=== PATIENT | female | born 1960 | race Caucasian/White ===

== ENCOUNTER 2024-07-30 18:45 | Emergency (ER) | payer BC, SELFPAY ==
[2024-07-30] VITALS (8 sets, daily range): BP systolic 105–144; BP diastolic 58–84; PULSE 89–101; RESP 15–26; TEMP 36.8–37; O2SAT 97–100; BMI 30.7
--- NOTE | 2024-07-30 19:00 | RAD_ITS ---
EXAM: XR RIGHT WRIST COMPLETE, 3 OR MORE VIEWS CLINICAL INDICATION: fall TECHNIQUE: Frontal, lateral and oblique views of the right wrist. COMPARISON: No relevant prior studies available. FINDINGS: BONES/JOINTS: Acute intra-articular fracture involving the distal radius. Dorsal angulation and partial displacement of the distal component. Diffuse osteopenia. Posttraumatic positive ulnar variance. Preservation of the joint space. No sclerotic or destructive changes observed. No other acute or healing fracture or malalignment. SOFT TISSUES: Moderate soft tissue swelling about the fracture site. No radiopaque foreign body. RAD/Wrist min 3 Views IMPRESSION: Acute intra-articular fracture involving the distal radius. Electronically Signed: Joe Paul MD at 19:28 EST ,
--- NOTE | 2024-07-30 20:34 | EX.ED.UPPERE ---
HPI History of Present Illness Chief Complaint: Upper Extremity Injury Detail of Chief Complaint: Right wrist injury Informant: patient Narrative Narrative: Patient presents the emergency department with complaint of injury to the right wrist that occurred approximately 545. Patient states that she slipped on some ice injuring her wrist. She is right-hand dominant. She denies any other injuries. She has no medical history. [facility] Medical History (Updated 07/30/24 @ 21:[address] Vaughn Damian, DO) Fall Allergy/AdvReac Type Severity Reaction Status Date / Time No Known Allergies Allergy Verified 07/30/24 18:46 Social History Smoking Status: Unknown if ever smoked ROS ROS ED Review of Systems ROS Unobtainable: other Constitutional Constitutional ED: Reports lethargy; Denies chills, fever(s), sweats or weight loss Eyes Eyes: Denies blurry vision, change in vision or diplopia ENT ENT ED: Denies rhinorrhea or sore throat Cardiovascular Cardiovascular: Denies chest pain, orthopnea or racing heartbeat Respiratory/Chest Respiratory/Chest: Denies cough, dyspnea, dyspnea on exertion, orthopnea or sputum Gastrointestinal Gastrointestinal: Denies abdominal pain, diarrhea, nausea or vomiting Genitourinary Genitourinary ED: Denies dysuria, hematuria or urinary frequency Musculoskeletal Musculoskeletal: Reports other Details: Right wrist injury/pain ; Denies arthralgias, back pain, myalgias or neck pain Integumentary Denies abscess, Abrasions or rash Neurologic Neurologic: Denies headache(s) or weakness Psychiatric Psychiatric: Denies anxiety, depression or suicidal thoughts Endocrine Endocrinology: Denies polydipsia, polyphagia or polyuria Hematologic/Lymphatic Hematologic/Lymphatic: Denies easy bleeding, easy bruising or lymphadenopathy Allergic/Immunologic Allergic/Immunologic ED: Denies mouth swelling, tongue swelling or urticaria EXAM Physical Exam Const Vital Signs: 07/30/24 18:46 Temperature 98.6 F Temperature Source Oral Pulse Rate 89 Respiratory Rate 18 Blood Pressure 144/84 H Blood Pressure Mean 104 Pulse Ox 99 Oxygen Delivery Method Room Air Positive well nourished and well developed General Appearance ED: well developed and NAD HEENT Reports TM's clear and moist mucous membranes normocephalic and atraumatic; Negative for trauma or tenderness Tympanic Membrane ED: Yes TM's clear Eyes PERRL and EOMs intact bilaterally General Eye ED: Negative for pale conjunctiva or scleral icterus Neck no lymphadenopathy, supple and no JVD General: Negative for tenderness Chest Wall inspection of chest normal and palpation of chest normal Chest: Negative for tenderness Resp normal respiratory effort and clear to auscultation bilaterally Effort and Inspection: Negative for respiratory distress or pain with movement Auscultation: Negative for rhonchi, wheezes or diminished lung sounds Cardio regular rate, regular rhythm, S1 normal heart sound, S2 normal heart sound and no murmurs Peripheral Pulses: pulses 2+ throughout GI normal to inspection, nondistended, normoactive bowel sounds, soft to palpation, non-tender, non-distended and no masses Back/Spine no CVA tenderness and no thoracic nor lumbar tenderness Extremity Extremity Narrative: Right wrist-patient has diffuse soft tissue swelling with obvious deformity. No broken skin noted. She is neurovascular intact distally. She has tenderness palpation over the distal radius. General Extremety ED: Negative for edema General Extremity: Negative for edema Neuro oriented x3, CN's II-XII intact bilaterally, no sensory deficits noted and gait normal Sensorium / Orientation: awake, alert, oriented to person, oriented to place and oriented to time Motor Exam: strength 5/5 throughout and strength abnormal Psych mental status grossly normal Skin no rashes or lesions noted and no wounds MDM MDM MDM Narrative Medical decision making narrative: Patient with distal radius fracture after a fall. Not anticoagulated no medical history. Recommended procedural sedation for reduction. Will use propofol. Will obtain postreduction films and discussed with orthopedics. Patient had procedural sedation with propofol which she tolerated well. The fracture was reduced and patient was placed in a AP splint. She will be given a sling. I discussed case with orthopedics Dr. Mcclure who evaluated the x-rays and is comfortable with the reduction. He asked that patient follow-up with his office next week. Patient does not want a thing for pain for home. She is instructed to ice and elevate the extremity. Radiography Diagnostic Testing: Clinical Impression(s) from Imaging Studies Wrist X-Ray 07/30/24 19:00 IMPRESSION: Acute intra-articular fracture involving the distal radius. Electronically Signed: Joe Paul MD at 19:28 EST Reading Location ID and State: [address] [place] [address] Tel , Service support , Three-view x-rays of the right wrist obtained interpreted by myself as distal radius fracture that is displaced dorsally and intra-articular with about 50% displacement. Radiology in agreement. Three-view x-ray postreduction x-rays of the right wrist obtained interpreted by myself as significantly improved alignment with improvement of the height and resolved impaction. Radiology in agreement. Procedures Procedural Sedation 1 (Initial Baseline): Consent Signed: Yes Any Problems With Anesthesia: Yes (Vomiting) You/Your family experience fever (hyperthermia) w/anesthesia: No Sedation medication: Propofol Dose: 150 Route: IV Total Moderate Sedation Units: 150 Maliampati Score: Class I ASA Classification: I Discharge Plan Triage Chief Complaint: Upper Extremity Injury ED Provider: Vaughn Damian Dx/Rx/DC Orders Clinical Impression: Distal radial fracture Instructions: ED Colles Fracture, Reduction Required Primary Care Provider: Care Physician,No Primary Referrals: Daryl Mcclure MD [Med Staff - Active Staff] - 5-7 Days Care Physician,No Primary [Primary Care Provider] - Print Language: [place] Disposition Disposition: Home, Self Care
[2024-07-30] MEDS: Ondansetron 4 MG/2 ML Vial IV (21:02)
[2024-07-30] MEDS: Propofol 200 MG/20 ML Vial IV BOLUS (21:20)
--- NOTE | 2024-07-30 21:22 | RAD_ITS ---
EXAM: XR RIGHT WRIST COMPLETE, 3 OR MORE VIEWS CLINICAL INDICATION: post reduction TECHNIQUE: Frontal, lateral and oblique views of the right wrist. COMPARISON: 07/30/2024 at 1902 hours FINDINGS: BONES/JOINTS: Fiberglas cast is in place. There is closed reduction of a fracture the distal radius. Alignment is anatomic. Preservation of the joint space. No sclerotic or destructive changes observed. SOFT TISSUES: Unremarkable. No soft tissue swelling or gas. No radiopaque foreign body. RAD/Wrist min 3 Views IMPRESSION: Closed reduction and casting of a distal radius fracture. Electronically Signed: Varidner Stuart MD at 21:51 EST ,
== END 2024-07-30 22:13 | disposition home or self-care (01) ==
PROVIDERS: Emergency Provider Emergency Medicine; Visit Provider Emergency Medicine
DX: S52.571A Other intraarticular fracture of lower end of right radius, initial encounter for closed fracture (principal); W00.0XXA Fall on same level due to ice and snow, initial encounter
CPT/HCPCS: 25605; 73110; 96374; 99285; A4216; J2405